=== PATIENT | female | born 1970 | race Caucasian/White ===

== ENCOUNTER 2019-03-07 15:42 | Emergency (ER) | payer OTHER ==
[~2019-03-07] VITALS: Ht 157.5 cm; Wt 73.5 kg
[2019-03-07 16:00] VITALS: BP 124/56
--- NOTE | 2019-03-07 16:51 | NUR ---
PATIENT REFUSED XRAY.
== END 2019-03-07 16:52 | disposition home or self-care (01) ==
LOC: ER 15:56
DX: M79.674 Pain in right toe(s) (principal); F32.9 Major depressive disorder, single episode, unspecified; F19.10 Other psychoactive substance abuse, uncomplicated